=== PATIENT | male | born 1965 | race Caucasian/White ===

== ENCOUNTER 2020-01-08 19:44 | Emergency (ER) | payer SELFPAY ==
[2020-01-08] MEDS ORDERED: MVI, Adult with Vitamin K 10 ML, Thiamine 200 MG, Folic Acid 1 MG, Magnesium Sulfate 2 ... IV ONE ×5 (20:21)
[2020-01-08] MEDS ORDERED: Ondansetron 4 MG/2 ML SDV IVPUSH ONE (20:24)
--- NOTE | 2020-01-08 20:24 | EDM.PDOCBH ---
ED HPI GENERAL MEDICAL PROBLEM - General Chief Complaint: Drug or Alcohol Abuse Stated Complaint: [facility] Time Seen by Provider: 01/08/20 20:17 Source of Information: Reports: Patient, EMS, RN Notes Reviewed History Limitations: Reports: Intoxication - History of Present Illness INITIAL COMMENTS - FREE TEXT/NARRATIVE: 54-year-old gentleman brought in by EMS services for an evaluation, they did pick him up from his home residence he has been consuming a large amount of whiskey he is severely intoxicated difficult to obtain history from him due to his intoxication level he does open his eyes to voice will respond to questions easier with yes and no but then any complex sentence EMS crew initially evaluated him GCS of 12 currently he is at 13 - Related Data Allergies Allergy/AdvReac Type Severity Reaction Status Date / Time codeine Allergy Cannot Verified 01/08/20 19:50 Remember NSAIDS (Non-Steroidal Allergy Other Verified 01/08/20 20:19 Anti-Inflamma Home Meds: Home Meds Allopurinol [Zyloprim] 100 mg PO DAILY 01/08/20 [History] Losartan [Cozaar] 100 mg PO DAILY 01/08/20 [History] Omeprazole 40 mg PO ACBREAKFAST 01/08/20 [History] amLODIPine Besylate [Amlodipine Besylate] 5 mg PO DAILY 01/08/20 [History] atorvaSTATin [Lipitor] 20 mg PO BEDTIME 01/08/20 [History] Past Medical History Cardiovascular History: Reports: Hypertension Respiratory History: Reports: Sleep Apnea Gastrointestinal History: Reports: GERD Genitourinary History: Reports: Renal Disease Neurological History: Reports: CVA, Neuropathy, Peripheral Social & Family History - Tobacco Use Smoking Status *Q: Former Smoker ED ROS GENERAL - Review of Systems Review Of Systems: Unable To Obtain Reason Not Obtained: Alcohol intoxication ED EXAM, BEHAVIORAL HEALTH - Physical Exam Exam: See Below Exam Limited By: Intoxication General Appearance: Lethargic, Other (GCS 13) Eye Exam: Bilateral Eye: Normal Inspection Respiratory/Chest: No Respiratory Distress, Lungs Clear, Normal Breath Sounds, No Accessory Muscle Use, Chest Non-Tender Cardiovascular: Regular Rate, Rhythm, No Murmur GI/Abdominal: Soft, Non-Tender COURSE, BEHAVIORAL HEALTH COMP - Course Vital Signs: Last Vital Signs Temp 96 F L 01/08/20 19:49 Pulse 77 01/08/20 20:49 Resp 16 01/08/20 20:14 BP 105/65 01/08/20 20:49 Pulse Ox 96 01/08/20 20:49 Orders, Labs, Meds: Laboratory Tests 01/08/20 01/08/20 01/08/20 Range/Units 20:30 20:30 20:30 WBC 8.7 (4.5-11.0) K/uL RBC 4.06 L (4.30-5.90) M/uL Hgb 14.2 (12.0-15.0) g/dL Hct 42.6 (40.0-54.0) % MCV 105 H (80-98) fL MCH 35 H (27-31) pg MCHC 33 (32-36) % Plt Count 290 (150-400) K/uL Neut % (Auto) 53 (36-66) % Lymph % (Auto) 35 (24-44) % Scott % (Auto) 10 H (2-6) % Eos % (Auto) 2 (2-4) % Baso % (Auto) 1 (0-1) % Sodium 136 L (140-148) mmol/L Potassium 3.9 (3.6-5.2) mmol/L Chloride 101 (100-108) mmol/L Carbon Dioxide 21 (21-32) mmol/L Anion Gap 17.9 H (5.0-14.0) mmol/L BUN 16 (7-18) mg/dL Creatinine 1.1 (0.8-1.3) mg/dL Est Cr Clr Drug Dosing 67.67 mL/min Estimated GFR (MDRD) > 60 (>60) Glucose 109 H (74-106) mg/dL Calcium 7.9 L (8.5-10.1) mg/dL Total Bilirubin 0.2 (0.2-1.0) mg/dL AST 19 (15-37) U/L ALT 34 (12-78) U/L Alkaline Phosphatase 66 (46-116) U/L Total Protein 6.7 (6.4-8.2) g/dL Albumin 3.4 (3.4-5.0) g/dL Globulin 3.3 (2.3-3.5) g/dL Albumin/Globulin Ratio 1.0 L (1.2-2.2) Salicylates 6.5 (2.0-20.0) mg/dL Urine Opiates Screen (NEGATIVE) Ur Oxycodone Screen (NEGATIVE) Urine Methadone Screen (NEGATIVE) Ur Propoxyphene Screen (NEGATIVE) Acetaminophen 1.5 L (10.0-30.0) ug/mL Ur Barbiturates Screen (NEGATIVE) Ur Tricyclics Screen (NEGATIVE) Ur Phencyclidine Scrn (NEGATIVE) Ur Amphetamine Screen (NEGATIVE) U Methamphetamines Scrn (NEGATIVE) Urine MDMA Screen (NEGATIVE) U Benzodiazepines Scrn (NEGATIVE) U Cocaine Metab Screen (NEGATIVE) U Marijuana (THC) Screen (NEGATIVE) Ethyl Alcohol mg/dL 01/08/20 01/08/20 Range/Units 20:30 22:02 WBC (4.5-11.0) K/uL RBC (4.30-5.90) M/uL Hgb (12.0-15.0) g/dL Hct (40.0-54.0) % MCV (80-98) fL MCH (27-31) pg MCHC (32-36) % Plt Count (150-400) K/uL Neut % (Auto) (36-66) % Lymph % (Auto) (24-44) % Scott % (Auto) (2-6) % Eos % (Auto) (2-4) % Baso % (Auto) (0-1) % Sodium (140-148) mmol/L Potassium (3.6-5.2) mmol/L Chloride (100-108) mmol/L Carbon Dioxide (21-32) mmol/L Anion Gap (5.0-14.0) mmol/L BUN (7-18) mg/dL Creatinine (0.8-1.3) mg/dL Est Cr Clr Drug Dosing mL/min Estimated GFR (MDRD) (>60) Glucose (74-106) mg/dL Calcium (8.5-10.1) mg/dL Total Bilirubin (0.2-1.0) mg/dL AST (15-37) U/L ALT (12-78) U/L Alkaline Phosphatase (46-116) U/L Total Protein (6.4-8.2) g/dL Albumin (3.4-5.0) g/dL Globulin (2.3-3.5) g/dL Albumin/Globulin Ratio (1.2-2.2) Salicylates (2.0-20.0) mg/dL Urine Opiates Screen Negative (NEGATIVE) Ur Oxycodone Screen Negative (NEGATIVE) Urine Methadone Screen Negative (NEGATIVE) Ur Propoxyphene Screen Negative (NEGATIVE) Acetaminophen (10.0-30.0) ug/mL Ur Barbiturates Screen Negative (NEGATIVE) Ur Tricyclics Screen Negative (NEGATIVE) Ur Phencyclidine Scrn Negative (NEGATIVE) Ur Amphetamine Screen Negative (NEGATIVE) U Methamphetamines Scrn Negative (NEGATIVE) Urine MDMA Screen Negative (NEGATIVE) U Benzodiazepines Scrn Negative (NEGATIVE) U Cocaine Metab Screen Negative (NEGATIVE) U Marijuana (THC) Screen Negative (NEGATIVE) Ethyl Alcohol 252 mg/dL Medications Discontinued Medications Generic Name Dose Route Start Last Admin Trade Name Freq PRN Reason Stop Dose Admin Multivitamins/Minerals 10 ml/ 1,016.2 mls @ 500 mls/hr 01/08/20 20:21 20:51 Thiamine HCl 200 mg/ Folic IV 01/08/20 22:22 500 mls/hr Acid 1 mg/ Magnesium Sulfate 2 ONETIME ONE Administration gm/ Dextrose/Lactated Ringer' s Ondansetron HCl 4 mg 01/08/20 20:24 01/08/20 20:28 Zofran IVPUSH 01/08/20 20:25 4 mg ONETIME ONE Administration Departure - Departure Time of Disposition: 23:10 Disposition: Home, Self-Care 01 Condition: Fair Clinical Impression: Alcohol intoxication Qualifiers: Complication of substance-induced condition: uncomplicated Qualified Code(s): F10.920 - Alcohol use, unspecified with intoxication, uncomplicated - Discharge Information Referrals: PCP,None [Primary Care Provider] - Forms: ED Department Discharge Additional Instructions: Refrain from use of alcohol, please followup with your primary care provider in 3-5 days if not better, please call return to the emergency department with worsening of symptoms. Sepsis Event Note - Evaluation Sepsis Screening Result: No Definite Risk - Focused Exam Vital Signs: Vital Signs Temp Pulse Resp BP Pulse Ox 01/08/20 20:49 77 105/65 96 01/08/20 20:14 78 16 97/62 91 L 01/08/20 19:49 96 F L 77 16 128/84 95 01/08/20 19:46 96 F L 77 16 128/84 95 Date Exam was Performed: 01/08/20 Time Exam was Performed: 23:09 - Assessment/Plan Plan: Assessment Acuity = acute Site and laterality = alcohol intoxication Etiology = EtOH Manifestations = none Location of injury = Home Lab values = alcohol is at 275 otherwise CBC and CMP are unremarkable Plan He did arouse GCS 15 he states that he admits to getting into a verbal discussion with his started drinking heavily which he normally does not do and thus became intoxicated, he will be discharged home to his follow-up primary care as needed This note was dictated using [employer] voice recognition software please call with any questions on syntax or grammar.
[2020-01-08 20:53] LABS: ACETAMINOPHEN 1.5 ug/mL (10.0-30.0)
== END 2020-01-08 23:20 | disposition home or self-care (01) ==
LOC: JP.ED 19:44
DX: F10.120 Alcohol abuse with intoxication, uncomplicated (principal); I10 Essential (primary) hypertension; K21.9 Gastro-esophageal reflux disease without esophagitis; Z88.5 Allergy status to narcotic agent; Z88.6 Allergy status to analgesic agent; Z79.899 Other long term (current) drug therapy; Z86.73 Personal history of transient ischemic attack (TIA), and cerebral infarction without residual deficits; Z87.891 Personal history of nicotine dependence; Y90.8 Blood alcohol level of 240 mg/100 ml or more
CPT/HCPCS: 36415; 80053; 80305; 80307; 85025; 96365; 96366; 96375; 99284; J2405; J3411; J3475; J7121; J3490

== ENCOUNTER 2022-05-13 07:57 | Inpatient (IN) | payer BC, OTHER ==
[2022-05-13] MEDS ORDERED: Sodium Chloride 0.9% 10 ML Syringe FLUSH PRN ×2 (08:06→13:18)
[2022-05-13] MEDS ORDERED: Dextrose 5%-Lactated Ringers 1,000 ML IV SCH (08:15)
[2022-05-13 08:52] LABS: ESTIMATED GFR 70 mL/min (>60); TROPONIN I HIGH SENSITIVITY 10.8 pg/mL (<=60.3)
[2022-05-13] MEDS ORDERED: Lidocaine 1% PF 2 ML SDV IV SCH (09:00)
[2022-05-13] MEDS ORDERED: Potassium Chloride 20 MEQ in Premix Bag 1 BAG IV SCH (09:00)
[2022-05-13] MEDS ORDERED: Magnesium Sulfate/Water 2 GM in Premix Bag 1 BAG IV ONE (09:00)
[2022-05-13] MEDS ORDERED: Calcium Gluconate 10% 1 GM/10 ML SDV IVPUSH ONE (09:02)
[2022-05-13] MEDS ORDERED: Thiamine 200 MG/2 ML MDV IVPUSH ONE (09:02)
[2022-05-13] MEDS: Potassium Chloride 20 MEQ, Lidocaine 1% 2 ML in Sodium Chloride 0.9% 100 ML IV SCH ×4 (09:39→16:19)
[2022-05-13] MEDS ORDERED: Folic Acid 50 MG/10 ML MDV IV SCH (10:15)
[2022-05-13] MEDS ORDERED: Folic Acid 1 MG in Sodium Chloride 0.9% 50 ML IV SCH (11:00)
[2022-05-13] MEDS ORDERED: Heparin Sodium 5,000 UNITS in Sodium Chloride 0.9% 500 ML IV SCH ×2 (11:30→12:00)
[2022-05-13] MEDS ORDERED: Ondansetron 4 MG/2 ML SDV IV PRN (13:18)
[2022-05-13] MEDS ORDERED: Acetaminophen 325 MG Tab PO PRN (13:18)
[2022-05-13] MEDS ORDERED: LORazepam 2 MG/ML SDV IV SCH (13:18)
[2022-05-13] MEDS ORDERED: Potassium Chloride 20 MEQ Tab.ER PO ONE (14:00)
[2022-05-13] MEDS ORDERED: MVI, Adult with Vitamin K 10 ML, Thiamine 100 MG, Folic Acid 1 MG, Magnesium Sulfate 2 ... IV ONE ×5 (14:00)
[2022-05-13] MEDS: Lactulose Soln 10 GM/15 ML 15 ML UD Cup PO SCH ×4 (14:59→21:26)
[2022-05-13] MEDS: Gabapentin 400 MG Cap PO SCH ×4 (14:59→22:47)
[2022-05-13] MEDS ORDERED: Potassium Chloride 20 MEQ in Premix Bag 1 BAG IV ONE ×3 (19:48→22:00)
[2022-05-13] MEDS ORDERED: Lidocaine 1% 5 ML VIAL INJECT ONE (19:50)
[2022-05-14] MEDS: Sodium Chloride 0.9% 1,000 ML IV SCH ×2 (00:28→12:19)
[2022-05-14 05:45] LABS: ESTIMATED GFR 87 mL/min (>60)
[2022-05-14] MEDS: Gabapentin 400 MG Cap PO SCH ×5 (06:40→23:34)
[2022-05-14] MEDS: LORazepam 1 MG Tab PO SCH ×3 (07:42→12:46)
[2022-05-14] MEDS ORDERED: Potassium Chloride 20 MEQ Tab.ER PO ONE (08:00)
[2022-05-14] MEDS: Enoxaparin 40 MG/0.4 ML Syringe SUBCUT SCH (09:16)
[2022-05-14] MEDS: Folic Acid 1 MG Tab PO SCH (09:22)
[2022-05-14] MEDS: Lactulose Soln 10 GM/15 ML 15 ML UD Cup PO SCH ×4 (09:22→23:34)
[2022-05-14] MEDS: Thiamine 100 MG Tab PO SCH (09:22)
[2022-05-14] MEDS ORDERED: Gadoteridol 279.3 MG/ML 15 ML SDV IV SCH (12:00)
[2022-05-14] MEDS ORDERED: Sodium Chloride 0.9% 1,000 ML IV SCH (16:30)
[2022-05-14] MEDS: Clopidogrel 75 MG Tab PO SCH (18:15)
[2022-05-15] MEDS: Gabapentin 400 MG Cap PO SCH ×3 (07:57→22:58)
[2022-05-15] MEDS: Enoxaparin 40 MG/0.4 ML Syringe SUBCUT SCH (07:59)
[2022-05-15] MEDS: Folic Acid 1 MG Tab PO SCH (08:00)
[2022-05-15] MEDS: Clopidogrel 75 MG Tab PO SCH (08:00)
[2022-05-15] MEDS: Thiamine 100 MG Tab PO SCH (08:00)
[2022-05-15] MEDS: Lactulose Soln 10 GM/15 ML 15 ML UD Cup PO SCH ×3 (08:01→22:58)
[2022-05-15] MEDS ORDERED: Potassium Chloride 20 MEQ Tab.ER PO ONE (08:15)
[2022-05-15] MEDS: LORazepam 1 MG Tab PO SCH (09:57)
[2022-05-15] MEDS ORDERED: Nicotine Polacrilex 2 MG Gum CHEW PRN (11:07)
[2022-05-15] MEDS ORDERED: Non-Formulary Medication 1 Each (Omeprazole [Omeprazole] 40 MG Cap.Cr) PO SCH (11:15)
[2022-05-15] MEDS: Nicotine 14 MG/24 Hr Patch TRDERM SCH (11:54)
[2022-05-15] MEDS: Pantoprazole 40 MG Tab.CR PO SCH (11:55)
[2022-05-16] MEDS ORDERED: Potassium Chloride 20 MEQ Tab.ER PO ONE (08:17)
[2022-05-16] MEDS: Pantoprazole 40 MG Tab.CR PO SCH (08:58)
[2022-05-16] MEDS: Clopidogrel 75 MG Tab PO SCH (09:09)
[2022-05-16] MEDS: Folic Acid 1 MG Tab PO SCH (09:09)
[2022-05-16] MEDS: Nicotine 14 MG/24 Hr Patch TRDERM SCH (09:12)
[2022-05-16] MEDS: Enoxaparin 40 MG/0.4 ML Syringe SUBCUT SCH (09:12)
[2022-05-16] MEDS: Lactulose Soln 10 GM/15 ML 15 ML UD Cup PO SCH (09:12)
[2022-05-16] MEDS: Thiamine 100 MG Tab PO SCH (09:20)
[2022-05-16] MEDS ORDERED: atorvaSTATin 20 MG Tab PO ONE (10:15)
[2022-05-16] MEDS ORDERED: Aspirin 81 MG Tab.Chew PO SCH (10:30)
[2022-05-16] MEDS ORDERED: Iopamidol 755 Mg/ML 100 ML Bottle IV SCH (11:00)
[2022-05-16] MEDS ORDERED: Sodium Chloride 0.9% 100 ML IV SCH (11:00)
[2022-05-16] MEDS ORDERED: atorvaSTATin 20 MG Tab PO SCH (21:00)
== END 2022-05-16 15:24 | disposition home or self-care (01) | DRG 896 ==
LOC: JP.ED 07:57 → JP.ICU 12:16
PROVIDERS: ADMIT Hospitalist; ATTEND Hospitalist
DX: F10.231 Alcohol dependence with withdrawal delirium (principal); I63.9 Cerebral infarction, unspecified; G93.49 Other encephalopathy; E87.3 Alkalosis; E87.6 Hypokalemia; R40.2433 Glasgow coma scale score 3-8, at hospital admission; I25.10 Atherosclerotic heart disease of native coronary artery without angina pectoris; G47.33 Obstructive sleep apnea (adult) (pediatric); H53.2 Diplopia; F17.200 Nicotine dependence, unspecified, uncomplicated; K21.9 Gastro-esophageal reflux disease without esophagitis; G62.9 Polyneuropathy, unspecified; K76.9 Liver disease, unspecified; R40.2412 Glasgow coma scale score 13-15, at arrival to emergency department; E83.51 Hypocalcemia; Z79.899 Other long term (current) drug therapy; I12.9 Hypertensive chronic kidney disease with stage 1 through stage 4 chronic kidney disease, or unspecified chronic kidney disease; N18.2 Chronic kidney disease, stage 2 (mild); Z88.8 Allergy status to other drugs, medicaments and biological substances; Z86.73 Personal history of transient ischemic attack (TIA), and cerebral infarction without residual deficits
CPT/HCPCS: 36415; 36600; 70450; 70496; 70498; 70553; 80048; 80053; 80179; 80305-QW; 80307; 81001; 82140; 82607; 82746; 82803; 83605; 83735; 84132; 84145; 84484; 85025; 85379; 85610; 93005; 96361; 96365; 96366; 96367; 96375; 99285-25; A9270-GY; A9579; J0610; J1650; J3411; J3475; J3480; J3490; J7030; J7121; Q9967; U0002

== ENCOUNTER 2024-07-02 13:42 | Emergency (ER) | payer MEDICAID ==
[2024-07-02 15:15] LABS: BASOPHILS PERCENT AUTO 0.3 % (0.1-1.3); EOSINOPHILS PERCENT AUTO 0.3 % (0.0-5.4); HEMATOCRIT 30.3 % (38.4-49.7); IMMATURE GRAN PERCENT AUTO 0.3 % (0.0-0.7); LYMPHOCYTES ABSOLUTE AUTO 1.42 K/uL (0.8-3.3); LYMPHOCYTES PERCENT AUTO 24.3 % (11.4-47.7); MEAN CORPUSCULAR HGB CONC 36.3 g/dL (31.6-35.5); MEAN CORPUSCULAR VOLUME 107.4 fL (81.4-99.0); MONOCYTES ABSOLUTE AUTO 0.31 K/uL (0.20-0.90); MONOCYTES PERCENT AUTO 5.3 % (3.3-12.6); NEUTROPHILS ABSOLUTE AUTO 4.06 K/uL (1.0-7.6); NEUTROPHILS PERCENT AUTO 69.5 % (40.0-78.1); PLATELET COUNT,PLT 179 K/uL (130-375); RED BLOOD CELL COUNT 2.82 M/uL (4.14-5.76); WHITE BLOOD CELL COUNT,WBC 5.9 K/uL (3.2-11.0)
[2024-07-02 15:19] LABS: BASOPHILS ABSOLUTE AUTO 0.02 K/uL (0.00-0.10); EOSINOPHILS ABSOLUTE AUTO 0.02 K/uL (0.00-0.40); IMMATURE GRAN ABSOLUTE AUTO 0.02 K/uL (0.00-0.23)
[2024-07-02 15:44] LABS: A/G RATIO 0.6 (1.2-2.2); ALANINE AMINOTRANSFERASE,ALT 27 U/L (12-78); ALKALINE PHOSPHATASE 130 U/L (46-116); ASPARTATE AMNIOTRANSFERASE,AST 49 U/L (15-37); BILIRUBIN TOTAL 0.4 mg/dL (0.2-1.0); BLOOD UREA NITROGEN,BUN 14 mg/dL (7-18); CARBON DIOXIDE,CO2 18 mmol/L (21-32); CHLORIDE,CL 104 mmol/L (100-108); CREATININE 1.5 mg/dL (0.8-1.3); EST CRCL DRUG DOSING (CG) 37.82 mL/min; ESTIMATED GFR 53 mL/min (>60); GLUCOSE RANDOM 133 mg/dL (74-106); POTASSIUM,K 3.1 mmol/L (3.6-5.2); PROTEIN TOTAL,TP 5.5 g/dL (6.4-8.2); SODIUM,NA 136 mmol/L (140-148)
[2024-07-02 15:46] LABS: ANION GAP 17.1 mmol/L (5.0-14.0); C-REACTIVE PROTEIN < 0.50 mg/dL (<0.50); LACTIC ACID 5.2 mmol/L (0.4-2.0)
[2024-07-02] MEDS: Potassium Chloride 20 MEQ Tab.ER PO ONE (16:03)
[2024-07-02] MEDS: Sodium Chloride 0.9% 1,000 ML IV ONE ×2 (16:03→17:23)
[2024-07-02] MEDS: Sodium Chloride 0.9% 10 ML Syringe FLUSH PRN (16:05)
[2024-07-02] MEDS: fentaNYL 50 MCG/ML SDV IVPUSH ONE (16:05)
[2024-07-02] MEDS: Iopamidol 612 MG/ML 100 ML Bottle IV ONE (16:47)
[2024-07-02] MEDS: Sodium Chloride 0.9% 100 ML IV ONE (16:47)
[2024-07-02] MEDS: Piperacillin/Tazobactam 4.5 GM in Sodium Chloride 0.9% 100 ML IV ONE (17:28)
[2024-07-02] MEDS: Acetaminophen/HYDROcodone 325-5 MG Tab PO ONE (17:30)
[2024-07-02] MEDS: Sodium Chloride 0.9% 10 ML Syringe FLUSH ONE (17:31)
[2024-07-02 18:26] LABS: APPEARANCE,URINE CLEAR (CLEAR); BILIRUBIN,URINE SMALL (NEGATIVE); GLUCOSE,URINE NEGATIVE (NEGATIVE); KETONES,URINE NEGATIVE (NEGATIVE); LEUKOCYTE ESTERASE,URINE NEGATIVE (NEGATIVE); NITRITE,URINE NEGATIVE (NEGATIVE); OCCULT BLOOD,URINE NEGATIVE (NEGATIVE); PROTEIN,URINE 30 mg/dL (NEGATIVE)
[2024-07-02 18:53] LABS: BACTERIA,URINE FEW; COLOR,URINE OTHER (YELLOW); EPITHELIAL CELLS,URINE FEW; MUCUS,URINE RARE; RBC,URINE NOT SEEN (0-5); WBC,URINE NOT SEEN (0-5)
[2024-07-02 19:09] LABS: AMPHETAMINES SCREEN, URINE NEGATIVE (NEGATIVE); BARBITURATE SCREEN,URINE NEGATIVE (NEGATIVE); BENZODIAZEPINES SCREEN,URINE NEGATIVE (NEGATIVE); METHADONE SCREEN, URINE PRESUMPTIVE POSITIVE (NEGATIVE); METHAMPHETAMINES SCREEN, URINE NEGATIVE (NEGATIVE); OXYCODONE SCREEN,URINE NEGATIVE (NEGATIVE); PROPOXYPHENE SCREEN,URINE NEGATIVE (NEGATIVE); THC SCREEN,URINE 50 NG/ML NEGATIVE (NEGATIVE)
== END 2024-07-02 19:08 | disposition left against medical advice (07) ==
LOC: JP.ED 13:42
DX: R62.7 Adult failure to thrive (principal); E87.6 Hypokalemia; D53.9 Nutritional anemia, unspecified; E87.20 Acidosis, unspecified; I10 Essential (primary) hypertension; K21.9 Gastro-esophageal reflux disease without esophagitis; Z79.899 Other long term (current) drug therapy; Z88.5 Allergy status to narcotic agent; Z88.6 Allergy status to analgesic agent
CPT/HCPCS: 36415; 51798; 71260; 74177; 80053; 80305; 80307; 81001; 82140; 83605; 84145; 84484; 85025; 86140; 87040; 87077; 93005; 93010; 96361; 96365; 96368; 96375; 99284; A9270; C1758; J2543; J3010; J3370; J3490; J7030; J7050; Q9967